=== PATIENT | male | born 2000 | race Caucasian/White ===

== ENCOUNTER 2021-10-24 19:24 | Emergency (ER) | payer BC ==
[~2021-10-24] VITALS: Ht 185.4 cm; Wt 86.2 kg
[2021-10-24 19:34] VITALS: BP_SYST 134
--- NOTE | 2021-10-24 19:34 | NUR ---
Patient to ER bed 05 to gown for evaluation. Side rails up. Report given to luis merida
--- NOTE | 2021-10-24 19:50 | NUR ---
POLO Chase at bedside examining patient.
--- NOTE | 2021-10-24 19:58 | NUR ---
Patient brought into ED from home, ANO x4 complaining of right arm pain status post fall. Patient reports that he was skateboarding downhill when he fell on his right elbow. Pain 9 out of 10.
[2021-10-24] MEDS ORDERED: MORPHINE 4 MG INJ. 4 MG/ML VIAL IM ONE ×2 (20:00→21:00)
--- NOTE | 2021-10-24 20:05 | NUR ---
PT taken to RAD for imaging.
[2021-10-24] MEDS ORDERED: OXYCODONE/ACETAMINOPHEN 5-325 TABLET PO ONE (22:30)
[2021-10-24] MEDS ORDERED: OXYC-128 PO (22:48)
[2021-10-24] MEDS ORDERED: IBUP-1969 PO (22:53)
[2021-10-24 23:20] VITALS: BP_SYST 129
--- NOTE | 2021-10-24 23:22 | NUR ---
Patient given written and verbal discharge instructions and verbalizes understanding. ER MD Ramírez discussed with patient the results and treatment provided. Patient in stable condition. ID arm band removed. Rx of Ibuprofen and Oxycodone sent to pharmacy of choice. Patient educated on pain management and to follow up with PMD. Pain Scale 2/10 upon discharge. Opportunity for questions provided and answered. Medication side effect fact sheet provided. Pt confirmed father will be driving him home s/p pain medication administration.
== END 2021-10-24 23:20 | disposition home or self-care (01) ==
LOC: SED 19:24
DX: S52.121A Displaced fracture of head of right radius, initial encounter for closed fracture (principal); S63.501A Unspecified sprain of right wrist, initial encounter; S60.222A Contusion of left hand, initial encounter; S30.810A Abrasion of lower back and pelvis, initial encounter; V00.131A Fall from skateboard, initial encounter; Y93.89 Activity, other specified; Y92.89 Other specified places as the place of occurrence of the external cause; Y99.8 Other external cause status
CPT/HCPCS: 29105; 71045; 73090; 73110; 73130; 96372; 99284; J2270